=== PATIENT | male | born 1985 | race African-American/Black ===

== ENCOUNTER 2023-12-14 17:50 | Emergency (ER) | payer OTHER ==
[~2023-12-14] VITALS: Ht 190.5 cm; Wt 120.0 kg
[~2023-12-14 17:50] MED LIST: NAPROSYN500 MG OR
[2023-12-14 17:59] VITALS: BP 118/70
[2023-12-14 18:00] VITALS: BP 109/71
[2023-12-14 18:15] VITALS: BP 108/69
[2023-12-14 18:30] VITALS: BP 107/68
[2023-12-14 18:46] VITALS: BP 105/73
== END 2023-12-14 18:52 | disposition home or self-care (01) | DRG 607 ==
LOC: ED 17:50
DX: L84 Corns and callosities (principal)